=== PATIENT | male | born 1960 | race Caucasian/White ===

== ENCOUNTER 2017-06-06 01:51 | Observation (INO) | payer BC ==
[2017-06-06] VITALS (10 sets, daily range): BP systolic 156–206; BP diastolic 85–105; PULSE 50–71; RESP 16–18; TEMP 97.8–98.4; O2SAT 95–100
--- NOTE | 2017-06-06 02:27 | PD ---
HPI Chief Complaint: Chest Pain Time Seen by Provider: 02:07 Travel History International Travel<30 days: No Contact w/Intl Traveler<30days: No Traveled to known affect area: No History of Present Illness HPI 56-year-old male complains of generalized malaise and weakness and dizziness and chest discomfort. Patient states that the symptoms started 2 days ago and got worse tonight. Patient started having feeling of heaviness to the chest, lower extremity weakness, anxiety, numbness sensation of the arms and legs and the mouth, shortness of breath. Patient denies any headache. Patient denies any visual change. Patient denies any neck pain. Patient states that he has occasionally dry cough. Patient denies any abdominal pain. Patient denies any nausea vomiting diarrhea. Patient denies any dysuria or frequency. Patient fell recently and has intermittent neck pain and low back pain. Patient has history hypertension, hyperlipidemia. Patient is a nonsmoker. Patient has family history of heart disease. Patient has history of heart valve disease and bradycardia. Patient status post pacemaker placement 6 years ago. PFSH Past Medical History Cardiovascular Problems: Yes (Pacemaker) Social History Tobacco Use: No Allergies-Medications (Allergen,Severity, Reaction): Coded Allergies: No Known Allergies (Unverified , 06/06/17) Reported Meds & Prescriptions Reported Meds & Active Scripts Active Reported Aspirin 81 Mg Chew 162 Mg CHEW DAILY Rosuvastatin (Rosuvastatin Calcium) 10 Mg Tab 10 Mg PO HS Lorazepam 0.5 Mg Tab 0.5 Mg PO Q8H PRN Lisinopril-Hctz 20-12.5 Mg Tab 1 Tab PO DAILY Review of Systems General / Constitutional: No: Fever Eyes: No: Visual changes HENT: No: Headaches Cardiovascular: Positive: Chest Pain or Discomfort Respiratory: Positive: Cough, No: Shortness of Breath Gastrointestinal: No: Abdominal Pain Genitourinary: No: Dysuria Musculoskeletal: Positive: Weakness, No: Pain Skin: No Rash Neurologic: Positive: Dizziness, Paresthesia, No: Weakness Psychiatric: No: Depression Endocrine: No: Polydipsia Hematologic/Lymphatic: No: Easy Bruising Physical Exam Narrative GENERAL: Well-nourished, well-developed patient. SKIN: Focused skin assessment warm/dry. HEAD: Normocephalic. EYES: No scleral icterus. No injection or drainage. NECK: Supple, trachea midline. No JVD or lymphadenopathy. CARDIOVASCULAR: Regular rate and rhythm without murmurs, gallops, or rubs. RESPIRATORY: Breath sounds equal bilaterally. No accessory muscle use. GASTROINTESTINAL: Abdomen soft, non-tender, nondistended. MUSCULOSKELETAL: No cyanosis, or edema. BACK: Nontender without obvious deformity. No CVA tenderness. Neurologic exam normal. Data Data Last Documented VS Vital Signs Date Time Temp Pulse Resp B/P Pulse Ox O2 Delivery O2 Flow Rate FiO2 06/06/17 05:12 97 06/06/17 02:24 Room Air 06/06/17 02:17 65 16 06/06/17 02:11 98.4 206/102 Orders Electrocardiogram (06/06/17 02:15) Complete Blood Count With Diff (06/06/17 02:15) Comprehensive Metabolic Panel (06/06/17 02:15) Creatine Kinase (Cpk) (06/06/17 02:15) Troponin I (06/06/17 02:15) Prothrombin Time / Inr (Pt) (06/06/17 02:15) Act Partial Throm Time (Ptt) (06/06/17 02:15) Thyroid Stimulating Hormone (06/06/17 02:15) Chest, Single Ap (06/06/17 02:15) Iv Access Insert/Monitor (06/06/17 02:15) Ecg Monitoring (06/06/17 02:15) Oximetry (06/06/17 02:15) Activity Bed Rest With Brp (06/06/17 05:07) Vital Signs (Adult) Q4H (06/06/17 05:07) Cardiac Rhythm .As Directed (06/06/17 05:07) Notify Dr: Other .PRN (06/06/17 05:07) Notify DrMargaret Parameters (06/06/17 05:07) Resp Oxygen Nasal Cannula (06/06/17 ) Electrocardiogram (06/06/17 05:25) Electrocardiogram (06/06/17 08:25) ^ Obtain (06/06/17 05:07) Varnish Remover / Telemetry [place].Q8H (06/06/17 05:07) Ckmb (Isoenzyme) Profile (06/06/17 06:30) Ckmb (Isoenzyme) Profile (06/06/17 09:30) Troponin I (06/06/17 06:30) Troponin I (06/06/17 09:30) Admit Order (Ed Use Only) (06/06/17 05:16) CKMB (06/06/17 06:35) CKMB% (06/06/17 06:35) CKMB (06/06/17 09:28) CKMB% (06/06/17 09:28) Labs Laboratory Tests Test 06/06/17 06/06/17 02:25 03:30 White Blood Count 7.7 TH/MM3 Red Blood Count 4.89 MIL/MM3 Hemoglobin 16.1 GM/DL Hematocrit 46.7 % Mean Corpuscular Volume 95.7 FL Mean Corpuscular Hemoglobin 32.9 PG Mean Corpuscular Hemoglobin 34.4 % Concent Red Cell Distribution Width 13.4 % Platelet Count 210 TH/MM3 Mean Platelet Volume 7.4 FL Neutrophils (%) (Auto) 53.7 % Lymphocytes (%) (Auto) 35.2 % Monocytes (%) (Auto) 7.0 % Eosinophils (%) (Auto) 3.2 % Basophils (%) (Auto) 0.9 % Neutrophils # (Auto) 4.2 TH/MM3 Lymphocytes # (Auto) 2.7 TH/MM3 Monocytes # (Auto) 0.5 TH/MM3 Eosinophils # (Auto) 0.2 TH/MM3 Basophils # (Auto) 0.1 TH/MM3 CBC Comment DIFF FINAL Differential Comment Prothrombin Time 10.2 SEC Prothromb Time International 0.9 RATIO Ratio Activated Partial 26.8 SEC Thromboplast Time Sodium Level 139 MEQ/L Potassium Level 3.7 MEQ/L Chloride Level 104 MEQ/L Carbon Dioxide Level 26.0 MEQ/L Anion Gap 9 MEQ/L Blood Urea Nitrogen 13 MG/DL Creatinine 0.91 MG/DL Estimat Glomerular Filtration 86 ML/MIN Rate Random Glucose 137 MG/DL Calcium Level 8.8 MG/DL Total Bilirubin 0.4 MG/DL Aspartate Amino Transf 25 U/L (AST/SGOT) Alanine Aminotransferase 32 U/L (ALT/SGPT) Alkaline Phosphatase 77 U/L Total Creatine Kinase 214 U/L Troponin I LESS THAN 0.02 NG/ML Total Protein 6.6 GM/DL Albumin 3.7 GM/DL Thyroid Stimulating Hormone 3.620 uIU/ML 3rd Gen [facility] Medical Decision Making Medical Screen Exam Complete: Yes Emergency Medical Condition: Yes Interpretation(s) 4:29 AM. EKG shows sinus rhythm nonspecific ST-T wave change. Last Impressions Chest X-Ray 06/06/17 0215 Signed Impressions: Service Date/Time: Tuesday, June 06, 2017 02:18 - CONCLUSION: No acute disease. Oleg Pineda MD 4:29 AM. CBC within normal limit. Cardiac enzymes are normal. 4:52 AM. CMP within normal limit. Differential Diagnosis Differential diagnosis including anxiety panic attack, viral syndrome, angina, [place], PE, pneumothorax. Narrative Course 56-year-old male with multiple complaints including chest discomfort, weakness, numbness sensation of extremity, shortness of breath. Hesham Rodriguez MD Jun 06, 2017 02:27
--- NOTE | 2017-06-06 02:36 | RADRPT ---
EXAM DATE/TIME: 06/06/2017 02:18 [facility] COMPARISON: No previous studies available for comparison. INDICATIONS : Chest pain. MEDICAL HISTORY : Bradycardia. SURGICAL HISTORY : Pacemaker. ENCOUNTER: Initial ACUITY: 2 days PAIN SCORE: 3/10 LOCATION: Bilateral chest FINDINGS: A single view of the chest demonstrates the lungs to be symmetrically aerated without evidence of mas s, infiltrate or effusion. The cardiomediastinal contours are unremarkable. There is a left subclav frank AV sequential transvenous pacer in place. Osseous structures are intact. CONCLUSION: No acute disease. Oleg Pineda MD on June 06, 2017 at 2:35 Board Certified Radiologist. This report was verified electronically.
[2017-06-06 02:49] LABS: AUTOMATED NEUTROPHIL # 4.2 TH/MM3 (1.8-7.7); BASOPHIL # 0.1 TH/MM3 (0-0.2); BASOPHIL % 0.9 % (0.0-2.0); EOSINOPHIL # 0.2 TH/MM3 (0-0.4); EOSINOPHIL % 3.2 % (0.0-4.0); HEMATOCRIT 46.7 % (39.0-51.0); HEMO FLAGS DIFF FINAL; LYMPH % 35.2 % (9.0-44.0); LYMPHOCYTE # 2.7 TH/MM3 (1.0-4.8); MEAN CELL VOLUME 95.7 FL (80.0-100.0); MEAN CORPUSCULAR HEMOGLOBIN 32.9 PG (27.0-34.0); MEAN CORPUSCULAR HGB CONC 34.4 % (32.0-36.0); NEUT % 53.7 % (16.0-70.0); PLATELET COUNT 210 TH/MM3 (150-450); RED BLOOD COUNT 4.89 MIL/MM3 (4.50-5.90); RED CELL DISTRIBUTION WIDTH 13.4 % (11.6-17.2); WHITE BLOOD COUNT 7.7 TH/MM3 (4.0-11.0)
[2017-06-06 03:01] LABS: APTT (PATIENT) 26.8 SEC (24.3-30.1); INTERNATIONAL NORMALIZED RATIO 0.9 RATIO; PROTHROMBIN TIME - PATIENT 10.2 SEC (9.8-11.6)
[2017-06-06 04:09] LABS: ALT (GPT) 32 U/L (12-78)
[2017-06-06 04:19] LABS: ALKALINE PHOSPHATASE 77 U/L (45-117); CREATINE KINASE 214 U/L (39-308); TOTAL BILIRUBIN ADULT 0.4 MG/DL (0.2-1.0)
[2017-06-06 04:41] LABS: ANION GAP 9 MEQ/L (5-15); AST (GOT) 25 U/L (15-37); BLOOD UREA NITROGEN 13 MG/DL (7-18); CHLORIDE 104 MEQ/L (98-107); GLOMERULAR FILTRATION RATE 86 ML/MIN (>89); POTASSIUM 3.7 MEQ/L (3.5-5.1); SODIUM (NA) 139 MEQ/L (136-145)
[2017-06-06] MEDS ORDERED: ASPI81CH CHEW (05:52)
[2017-06-06] MEDS ORDERED: LORA-373 PO (05:52)
[2017-06-06] MEDS ORDERED: ROSU1TAB6 PO (05:52)
[2017-06-06] MEDS ORDERED: LISI20TA PO (05:52)
[2017-06-06] MEDS ORDERED: SODIUM CHLORIDE 0.9% FLUSH 10 ML FLUSH IV FLUSH PRN (07:15)
[2017-06-06] MEDS ORDERED: ACETAMINOPHEN 500 MG CPLT PO PRN (07:15)
[2017-06-06] MEDS ORDERED: NITROGLYCERIN 0.4 MG SL 25 TABS/BTL SL PRN (07:15)
[2017-06-06] MEDS ORDERED: ONDANSETRON HCL 4 MG/2 ML VIAL IV PRN (07:15)
[2017-06-06 07:37] LABS: CREATINE KINASE 189 U/L (39-308)
[2017-06-06 07:50] LABS: CKMB 4.1 NG/ML (0.5-3.6)
[2017-06-06] MEDS ORDERED: ASPIRIN 325 MG TAB PO SCH (09:00)
[2017-06-06] MEDS ORDERED: SODIUM CHLORIDE 0.9% FLUSH 10 ML FLUSH IV FLUSH SCH (09:00)
--- NOTE | 2017-06-06 09:05 | HHI.HP ---
HPI Primary Care Physician Non-Staff Chief Complaint Chest pain History of Present Illness 56-year-old male with history of hypertension, hyperlipidemia, and anxiety presents to emergency room for further evaluation of multiple complaints. Endorses falling 4 weeks ago on right side since fall he has not felt himself. Over the past couple weeks has experienced nausea, dizziness, and intermittent bilateral hands and feet numbness and tingling. Endorses recent situational stress, a good friend of his at age 50 heart attack from a massive heart attack. He is on vacation arriving Sunday night from [place]. Since Sunday evening and all day Sunday he continues to have intermittent nausea, dizziness, tingling of hands and around mouth. Sunday evening developed substernal "gas pain" no associated symptoms of nausea, shortness breath, or diaphoresis during chest discomfort episode. No radiation of chest discomfort. Pain comes on quickly last seconds. Precipitating factors may be eating as symptoms seem to occur after. No known relieving factors. Reports his father began having heart attacks in mid 40s and age 53 from myocardial infarction. No recent stress test. 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 Known heart murmur, diagnosis as a teenager. Last echo 3 -4years ago and told was normal. Review of Systems General: Generalized malaise for few weeks and bilateral lower leg weakness. No fever, chills, recent illness, or change in appetite. Recently arrived from [place] Sunday. Plans to return home Sunday. HEENT: 2 weeks sinus congestion. No DUGGAN, no blurred vision, no dysphasia. History of vertigo. CV: As stated above. No current chest pain or pressure. History of pacemaker placement 6 years ago for symptomatic bradycardia and 5 second pauses. RESP: Started with cough last nigth, no sputum production. No SOB or history of asthma GI: No current nausea. No vomiting, bowel changes, diarrhea, or constipation. Intermittent right upper quad "cramp" for many months, PCP aware and unable to determine cause. : No dysuria, urgency, or frequency EXT: No lower leg edema, numbness and tingling bilateral ankles for months, Currently numbness/tingling bilateral hands. MS: No discomfort or change in ROM. Fell approx. 4 weeks ago from ladder, fell on to right hip and right shoulder. NEURO: No change in memory or LOC PSYCH: Current situational stress, recently received prescription for lorazepam 1 1/2 month ago after unexpected of a good friend. owns his own [employer] business. SKIN: No rashes, no concerning lesions Past Family Social History Allergies: Coded Allergies: No Known Allergies (Unverified , 06/06/17) Past Medical History Hypertension, hyperlipidemia, anxiety Past Surgical History Pacemaker Reported Medications Reported Meds & Active Scripts Active Reported Aspirin 81 Mg Chew 162 Mg CHEW DAILY Rosuvastatin (Rosuvastatin Calcium) 10 Mg Tab 10 Mg PO HS Lorazepam 0.5 Mg Tab 0.5 Mg PO Q8H PRN Lisinopril-Hctz 20-12.5 Mg Tab 1 Tab PO DAILY Active Ordered Medications Current Medications Medications (Trade) Dose Ordered Sig/Jonathan Route Start Time Stop Time Status Last Admin (NS Flush) 2 ml UNSCH PRN IV FLUSH 06/06/17 07:15 (NS Flush) 2 ml BID IV FLUSH 06/06/17 09:00 (Tylenol) 500 mg Q4H PRN PO 06/06/17 07:15 (Zofran Inj) 4 mg Q6H PRN IV 06/06/17 07:15 (Nitrostat Sl) 0.4 mg Q5M PRN SL 06/06/17 07:15 (Aspirin) 325 mg DAILY PO 06/06/17 09:00 Family History Father massive [place] age 53, multiple heart attacks starting in early 40s. Social History Known hypertension and hyperlipidemia. No known diabetes or personal coronary artery disease. Quit smoking early 20s, Rare alcohol use. Denies any illegal drug use. , owns a [employer]. Past Cardiac Testing Stress test 6 years ago around time pacemaker placed. Pacer placed d/t 5 second pauses and bradycardia. Echocardiogram 3-4 years ago-reported to be normal. Follows with chore worker in [place] every 6 months, lasting visit 1 1/2 month ago. Physical Exam Vital Signs Vital Signs Date Time Temp Pulse Resp B/P Pulse Ox O2 Delivery O2 Flow Rate FiO2 06/06/17 07:42 98.0 52 18 156/97 97 06/06/17 07:41 97 21 06/06/17 05:53 59 16 158/85 98 Room Air 06/06/17 05:12 97 06/06/17 02:24 99 Room Air 06/06/17 02:17 65 16 Room Air 06/06/17 02:11 98.4 65 18 206/102 100 06/06/17 01:54 97.8 71 16 192/105 97 Room Air Physical Exam GENERAL: Alert WN, WD, NAD, pleasant, mildly anxious male HEAD: NC, AT NECK: Supple, no masses, trachea midline CV: RRR, 3/6 systolic murmur, no rub, gallop, or JVD. Bilateral carotid bruits mostly like radiation from murmur. RESP: Clear lungs throughout bilateral, no crackles, wheeze, rhonchi, symmetrical chest rise, nonlabored, able to speak in full sentences ABD: Soft, NT, ND, no masses, positive bowel tones, negative Rudolph sign BACK: No CVAT, no scoliosis EXT: Pulses +24, no dependent edema MS: Normal tone 4 extremities, nontender, no obvious deformities, full range of motion NEURO: CN II through CN XII grossly intact, motor strength 5/5, gait WNL PSYCH: A+O 3, pleasant, friendly affect, appropriate speech, appropriate mood and affect, insight and judgment, mildly anxious SKIN: Normal turgor, normal texture, no lesions, no rashes, brisk cap refill, even hair distribution Laboratory Laboratory Tests Test 06/06/17 06/06/17 06/06/17 02:25 03:30 06:35 White Blood Count 7.7 Red Blood Count 4.89 Hemoglobin 16.1 Hematocrit 46.7 Mean Corpuscular Volume 95.7 Mean Corpuscular Hemoglobin 32.9 Mean Corpuscular Hemoglobin 34.4 Concent Red Cell Distribution Width 13.4 Platelet Count 210 Mean Platelet Volume 7.4 Neutrophils (%) (Auto) 53.7 Lymphocytes (%) (Auto) 35.2 Monocytes (%) (Auto) 7.0 Eosinophils (%) (Auto) 3.2 Basophils (%) (Auto) 0.9 Neutrophils # (Auto) 4.2 Lymphocytes # (Auto) 2.7 Monocytes # (Auto) 0.5 Eosinophils # (Auto) 0.2 Basophils # (Auto) 0.1 CBC Comment DIFF FINAL Differential Comment Prothrombin Time 10.2 Prothromb Time International 0.9 Ratio Activated Partial 26.8 Thromboplast Time Sodium Level 139 Potassium Level 3.7 Chloride Level 104 Carbon Dioxide Level 26.0 Anion Gap 9 Blood Urea Nitrogen 13 Creatinine 0.91 Estimat Glomerular Filtration 86 Rate Random Glucose 137 Calcium Level 8.8 Total Bilirubin 0.4 Aspartate Amino Transf 25 (AST/SGOT) Alanine Aminotransferase 32 (ALT/SGPT) Alkaline Phosphatase 77 Total Creatine Kinase 214 189 Troponin I LESS THAN 0.02 LESS THAN 0.02 Total Protein 6.6 Albumin 3.7 Thyroid Stimulating Hormone 3.620 3rd Gen Creatine Kinase MB 4.1 Result Diagram: 06/06/1722406/06/17329 Imaging Last Impressions Chest X-Ray 06/06/17214 Signed Impressions: Service Date/Time: Tuesday, June 06, 2017 02:18 - CONCLUSION: No acute disease. Oleg Pineda MD Course EKG Paced rhythm Assessment and Plan Assessment and Plan #1 Atypical chest discomfort-admitted to chest pain center. Ruled out with 3 sets of EKGs, cardiac enzymes, and monitor throughout evening. Seen and evaluated by Dr. Temo Jimenez. Proceed with chemical stress test. Naturally if stress test is unremarkable, will discharge later this afternoon with follow- up with PCP. #2 Hypertensioncontinue lisinopril/HCTZ #3 Hyperlipidemia-continue rosuvastatin #4 Situational stressencouraged increasing daily activity, eating a healthy diet, and getting plenty of rest. Follow up with PCP and continue lorazepam PRN as ordered by PCP. #5 General malaise-Discussed in length regarding his multiple complaints could be related to anxiety, however should follow up with PCP to determine if any further laboratory or testing would be required. No acute findings at this time to explain general malaise. Patient agreeable to plan of care. Ashanti Aviles Jun 06, 2017 09:05
[2017-06-06 10:42] LABS: CREATINE KINASE 211 U/L (39-308)
[2017-06-06 10:56] LABS: CKMB 4.1 NG/ML (0.5-3.6)
[2017-06-06] MEDS ORDERED: HYDROCHLOROTHIAZIDE 25 MG TAB PO SCH (11:00)
[2017-06-06] MEDS ORDERED: LISINOPRIL 20 MG TAB PO SCH (11:00)
[2017-06-06] MEDS ORDERED: PILL SPLITTER OTHER PRN (11:15)
[2017-06-06] MEDS ORDERED: REGADENOSON INJ 0.4 MG/5 ML SYR ONE (13:33)
--- NOTE | 2017-06-06 14:39 | RADRPT ---
EXAM DATE/TIME: 06/06/2017 12:57 [facility] COMPARISON: No previous studies available for comparison. INDICATIONS : Chest pain with dizziness and weakness. Angina. DOSE: 35 mCi Tc99m Myoview at stress. 11 mCi Tc99m Myoview at rest. 0.4 mg Lexiscan STRESS SYMPTOMS: Dyspnea and heart racing. EJECTION FRACTION: 49% MEDICAL HISTORY : Hypertension. SURGICAL HISTORY : Pacemaker. ENCOUNTER: Initial ACUITY: 2 days PAIN SCALE: 3/10 LOCATION: Substernal chest TECHNIQUE: The patient underwent pharmacologic stress with infusion of prescribed dose. Continuous ECG tracing was monitored during stress. Gated SPECT imaging was performed after stress and conventional SPECT i maging was performed at rest. The examination was performed on a SPECT/CT scanner, both attenuation and non-corrected datasets were reviewed. FINDINGS: The best perfused myocardium in the anterolateral wall. Moderate gut activity does obscure the inferi or wall. The ejection fraction is 49% and minimal inferior septal hypokinesis, the wall obscured by gut activi ty. CONCLUSION: Probably negative for stress-induced ischemia. Correlation is suggested. RISK CATEGORY: Low (<1% Annual Mortality Rate) Iftikhar Gutierrez MD FACR on June 06, 2017 at 14:35 Board Certified Radiologist. This report was verified electronically.
--- NOTE | 2017-06-06 14:49 | HHI.DCPOC ---
Discharge Care Plan Diagnosis: (1) Atypical chest pain (2) Situational stress (3) Anxiety (4) Hypertension Goals to Promote Your Health * To prevent worsening of your condition and complications * To maintain your health at the optimal level Directions to Meet Your Goals Take your medications as prescribed Follow your dietary instruction Follow activity as directed Keep your appointments as scheduled Take your immunizations and boosters as scheduled If your symptoms worsen call your PCP, if no PCP go to Urgent Care Center or Emergency Room Smoking is Dangerous to Your Health. Avoid second hand smoke Call the 24-hour hour crisis hotline for domestic abuse at Ashanti Aviles Jun 06, 2017 14:49
--- NOTE | 2017-06-06 16:35 | EKG ---
Date Performed: 06/06/2017 Time Performed: 09:39:34 PTAGE: 56 years EKG: ELECTRONIC ATRIAL PACEMAKER ABNORMAL RHYTHM ECG PREVIOUS TRACING : 06/06/2017 06.38 Since previous tracing, no significant change noted DOCTOR: Temo Jimenez Interpretating Date/Time 06/06/2017 16:33:39
--- NOTE | 2017-06-06 16:36 | EKG ---
Date Performed: 06/06/2017 Time Performed: 06:38:27 PTAGE: 56 years EKG: ELECTRONIC ATRIAL PACEMAKER ABNORMAL RHYTHM ECG PREVIOUS TRACING : 06/06/2017 02.06 Since previous tracing, no significant change noted DOCTOR: Temo Jimenez Interpretating Date/Time 06/06/2017 16:34:21
--- NOTE | 2017-06-06 16:37 | EKG ---
Date Performed: 06/06/2017 Time Performed: 02:06:12 PTAGE: 56 years EKG: SINUS BRADYCARDIA MODERATE INTRAVENTRICULAR CONDUCTION DELAY BORDERLINE ECG NO PREVIOUS TRACING DOCTOR: Temo Jimenez Interpretating Date/Time 06/06/2017 16:35:04
--- NOTE | 2017-06-06 16:38 | TR ---
Date Performed: 06/06/2017 Time Performed: 13:37:06 DOCTOR: Temo Jimenez DRUG LIST: CLINICAL HISTORY: CHEST PAIN REASON FOR TEST: CHEST PAIN REASON FOR ENDING: OBSERVATION: CONCLUSION: Lexiscan stress test was performed under standard four minute protocol. Radionuclid e was injected one minute prior to ending the test. No electrocardiographic abormalities were present to suggest ischemia. Nuclear imaging and interpretation are pending. COMMENTS:
[2017-06-06] MEDS ORDERED: ATORVASTATIN 20 MG TAB PO SCH (21:00)
== END 2017-06-06 15:31 | disposition home or self-care (01) ==
LOC: NEPC 01:51 → NEDA 05:19 → NEPGCP 07:11
PROVIDERS: ADMIT Internal Medicine Interventional Cardiology; ATTEND Internal Medicine Interventional Cardiology
DX: R07.89 Other chest pain (principal); I10 Essential (primary) hypertension; E78.5 Hyperlipidemia, unspecified; F43.9 Reaction to severe stress, unspecified; R53.81 Other malaise; R11.0 Nausea; R42 Dizziness and giddiness; R20.0 Anesthesia of skin; R20.2 Paresthesia of skin; R53.1 Weakness; R05 Cough; R06.00 Dyspnea, unspecified; R00.1 Bradycardia, unspecified; R94.31 Abnormal electrocardiogram [ECG] [EKG]; M54.5 Low back pain; M54.2 Cervicalgia; R06.02 Shortness of breath; I20.9 Angina pectoris, unspecified; F41.9 Anxiety disorder, unspecified; Z95.0 Presence of cardiac pacemaker; Z79.899 Other long term (current) drug therapy; Z79.82 Long term (current) use of aspirin; Z82.49 Family history of ischemic heart disease and other diseases of the circulatory system
CPT/HCPCS: 71010; 78452; 80053; 82550; 82552; 84443; 84484; 85025; 85610; 85730; 93005; 93017; 99285; A9502; G0378; J2785